=== PATIENT | male | born 1960 | race Caucasian/White ===

== ENCOUNTER 2021-08-18 13:24 | Emergency (ER) | payer OTHER | END 2021-08-18 15:18 | disposition home or self-care (01) | LOC: CSHERS 13:24 | DX: S90.31XA Contusion of right foot, initial encounter (principal); I10 Essential (primary) hypertension; E78.00 Pure hypercholesterolemia, unspecified; Z87.891 Personal history of nicotine dependence; W11.XXXA Fall on and from ladder, initial encounter ==

== ENCOUNTER 2021-08-25 12:04 | Outpatient (CLI) | payer OTHER | END 2021-08-25 12:05 | disposition home or self-care (01) | LOC: CSHRAD 12:04 | PROVIDERS: ATTEND Family Medicine | DX: M79.671 Pain in right foot (principal); M77.31 Calcaneal spur, right foot ==

== ENCOUNTER 2022-03-11 05:10 | Emergency (ER) | payer OTHER ==
[2022-03-11] MEDS ORDERED: Boostrix 0.5 ML (Tdap) VIAL ONE (05:47)
[2022-03-11] MEDS ORDERED: Bacitracin 1 PK ONE (06:52)
== END 2022-03-11 07:26 | disposition home or self-care (01) ==
LOC: CSHERS 05:10
DX: S61.011A Laceration without foreign body of right thumb without damage to nail, initial encounter (principal); I10 Essential (primary) hypertension; E78.00 Pure hypercholesterolemia, unspecified; M10.9 Gout, unspecified; Z87.891 Personal history of nicotine dependence; W25.XXXA Contact with sharp glass, initial encounter
CPT/HCPCS: 12002; 90471; 90715